=== PATIENT | female | born 1985 | race Caucasian/White ===

== ENCOUNTER 2017-03-22 21:40 | Outpatient (CLI) | payer BC ==
[2017-03-22 22:32] LABS: Appearance,Urine Clear (Clear); Bilirubin,Urine Negative (Negative); Glucose,Urine (UA) Negative (Negative); Ketones,Urine Negative (Negative); Leukocyte Esterase,Urine Negative (Negative); Nitrite,Urine Negative (Negative); PH, Urine 6.5 (5.0-8.0); Protein,Urine Negative (Negative); Specific Gravity,Urine 1.002 (1.001-1.035); UA Billing (MACRO vs. MICRO) CHEM; Urobilinogen,Urine <2.0 mg/dL (<2.0)
[2017-03-22 22:36] VITALS: BP 135/60; PULSE 77; RESP 16; TEMP 97.1
--- NOTE | 2017-04-24 13:58 | P.MSEPDOC ---
Presenting Problems - Arrival Data Date of Arrival on Unit: 03/22/17 Time of Arrival on Unit: 21:45 Mode of Transport: Wheelchair - Complaint OB-Reason for Admission/Chief Complaint: Pain, Other Comment: Pt reports to triage with c/o painful urination. Medical History - Information : 2 Para: 1 Term: 1 : 0 Abortions: Spontaneous or Elective: 0 Number of Living Children: 1 - Gestational Age Gestational Age by BRENDEN (wks/days): 27 Weeks and 0 Days Review of Systems - Review of Systems Constitutional: No problems Breast: No problems ENT: No problems Cardiovascular: No problems Respiratory: No problems Gastrointestinal: No problems Genitourinary: No problems Musculoskeletal: No problems Neurological: No problems Skin: No problems Vital Signs - Temperature Temperature: 97.1 F Temperature Source: Temporal Artery Scan - Pulse Right Pulse Rate: 77 Pulse Assessment Method: Pulse Oximetry - Respirations Respiratory Rate: 16 Oxygen Delivery Method: Room Air O2 Sat by Pulse Oximetry: 99 - Blood Pressure Right Arm Blood Pressure: 135/60 Blood Pressure Mean: 85 Blood Pressure Source: Automatic Cuff Medical Screen Scoring (Pre) - Cervical Exam Dilation: Exam Deferred Effacement: Exam Deferred Membranes: Intact - Uterine Contractions Frequency: N/A Duration: N/A Intensity: N/A - Maternal Vital Signs Maternal Temperature: N/A Maternal Blood Pressure: N/A Signs of Preeclampsia: N/A Maternal Respirations: N/A - Maternal Trauma Maternal Trauma: N/A - Assessment Baseline FHR: 135 Heart Rate - NICHD Category: Category I (Normal) = 0 NST: Reactive Position: N/A Station: N/A - Total Score Total Score (Pre): 0 - Level of Risk Level of Risk: N/A Physician Notification (Pre) - Physician Notified Physician Notified Date: 03/22/17 Physician Notified Time: 22:25 Physician/Practitioner Notifed:: Dr. Payne Spoke With: Dr. Payne New Order Received: Yes - Notification Comment Comment: Orders for UA. Script written and to be given if UA results are positive. If results are negative pt cleared for discharge home and to keep appointment in office. Disposition - Disposition OB Disposition: Discharge to home Discharge Date: 03/22/17 Discharge Time: 22:40 I agree with the RN Medical Screening Exam: Yes Risk & Benefit of care provided described in d/c instruction: Yes Diagnosis: INFECT OF PRT URINARY TRACT IN , SECOND TRIMESTER
== END 2017-03-22 22:40 | disposition home or self-care (01) ==
LOC: FBPOP 21:40 → MERGE 21:40 → FBPOP 22:40
PROVIDERS: ATTEND Obstetrics & Gynecology Obstetrics
DX: O23.32 Infections of other parts of urinary tract in pregnancy, second trimester (principal); Z3A.27 27 weeks gestation of pregnancy
CPT/HCPCS: 81003; 99213

== ENCOUNTER 2017-06-07 19:26 | Emergency (ER) | payer BC ==
[2017-06-07] MEDS ORDERED: SODIUM CHLORIDE 0.9% 1,000 ML IV STA ×2 (20:18)
[2017-06-07] MEDS ORDERED: ONDANSETRON 4 MG/2 ML VIAL IVP STA (20:18)
[2017-06-07 20:47] LABS: Basophils % (A) 0 %; Eosinophils % (A) 0 %; HCT 42.4 % (34.0-46.0); HGB 14.3 gm/dL (11.4-16.0); Lymphocytes # (A) 0.3 k/uL (1.0-4.8); Lymphocytes % (A) 3 %; MCH 32.1 pg (25.0-35.0); MCHC 33.9 g/dL (31.0-37.0); MCV 94.8 fL (80.0-100.0); Mean Platelet Volume 9.4; Monocytes # (A) 0.3 k/uL (0-1.0); Monocytes % (A) 3 %; Neutrophils % (A) 93 %; Platelet Count 149 k/uL (150-450); RBC 4.47 m/uL (3.80-5.40); RDW 14.1 % (11.5-15.5); WBC 9.8 k/uL (3.8-10.6)
[2017-06-07 20:59] LABS: ALT 27 U/L (9-52); AST 30 U/L (14-36); Albumin 3.5 g/dL (3.5-5.0); Alkaline Phosphatase 153 U/L (38-126); Anion Gap 12 mmol/L; Blood Urea Nitrogen 11 mg/dL (7-17); Carbon Dioxide 18 mmol/L (22-30); Chloride 107 mmol/L (98-107); Glucose 81 mg/dL (74-99); Potassium 3.8 mmol/L (3.5-5.1); Sodium 137 mmol/L (137-145); Total Bilirubin 0.6 mg/dL (0.2-1.3); Total Protein 6.2 g/dL (6.3-8.2)
[2017-06-07] MEDS ORDERED: METOCLOPRAMIDE 5 MG/ML 2 ML VIAL IVP STA (21:25)
[2017-06-07] MEDS ORDERED: SODIUM CHLORIDE 0.9% 1,000 ML IV ONE (21:26)
--- NOTE | 2017-06-07 22:00 | ED ---
General Adult HPI - General Chief complaint: Nausea/Vomiting/Diarrhea Stated complaint: Needs Fluids Time Seen by Provider: 06/07/17 20:13 Source: patient, family, RN notes reviewed Mode of arrival: ambulatory Limitations: no limitations - History of Present Illness Initial comments: chief complaint and history of present illness this is a 31-year-old female who is 38 weeks . She is here with her . The patient family has had nausea vomiting and diarrhea. Her other child has it. Patient reports she started vomiting this morning at approximately 9 AM. - Related Data Home Medications Medication Instructions Recorded Confirmed 114/Iron A-G/Folate 1 1 tab PO HS 03/27/15 06/07/17 [Prenate Elite Tablet] Previous Rx's Medication Instructions Recorded Metoclopramide HCl [Reglan] 5 mg PO Q8HR PRN #10 tablet 06/07/17 Allergies Allergy/AdvReac Type Severity Reaction Status Date / Time No Known Allergies Allergy Verified 06/07/17 20:04 Review of Systems ROS Statement: Those systems with pertinent positive or pertinent negative responses have been documented in the HPI. Review of systems; patient denies any headache or visual acuity changes no chest pain or shortness of breath she has nausea vomiting and diarrhea. Minimal discomfort. No rashes. No complaint of any neuro deficits. No dizziness. All systems are reviewed. Past medical problems none. Surgeries none. Family history no cancers. Patient denies any ALLERGIES. Nonsmoker. Does not drink alcohol while . ROS Other: All systems not noted in ROS Statement are negative. Past Medical History Past Medical History: No Reported History History of Any Multi-Drug Resistant Organisms: None Reported Past Surgical History: Appendectomy Past Anesthesia/Blood Transfusion Reactions: No Reported Reaction Past Psychological History: No Psychological Hx Reported Smoking Status: Never smoker Past Alcohol Use History: None Reported Past Drug Use History: None Reported - Past Family History Father Family Medical History: No Reported History General Exam - General Exam Comments Initial Comments: General: The patient is awake and alert, in because of nausea vomiting diarrhea since 9 AM. Vital signs shows temperature 99.2 pulse 102 respiratory rate 18 pulse ox 90% room air blood pressure 127/73 Eye: Pupils are equal, round and reactive to light, extra-ocular movements are intact ; there is normal conjunctiva bilaterally. No signs of icterus. Ears, nose, mouth and throat: There are moist mucous membranes and no oral lesions. Neck: The neck is supple, there is no tenderness Cardiovascular: There is a regular rate and rhythm. No murmur, rub or gallop is appreciated. Respiratory: Lungs are clear to auscultation, respirations are non-labored, breath sounds are equal. No wheezes, stridor, rales, or rhonchi. Gastrointestinal: Patient's here with nausea vomiting diarrhea. She is 38 weeks . Nurse from labor and delivery came down and did a stress test on the baby and reports it to be normal. Back: No back pain. Musculoskeletal: Normal ROM, no tenderness, There is no pedal edema. There is no calf tenderness or swelling. Sensation intact. Pulses equal bilaterally 2+. Neurological: No neuro deficits or complaints of dizziness. Skin: Skin is warm and dry and no rashes or lesions are noted. Limitations: no limitations Course Vital Signs 06/07/17 19:44 Temperature 99.2 F Pulse Rate 107 H Respiratory 18 Rate Blood Pressure 127/73 O2 Sat by Pulse 98 Oximetry Medical Decision Making - Medical Decision Making Decision making; the patient's here because she is 38 weeks has nausea vomiting diarrhea. There is a virus going through the house including her young child. Labs show white count of 9.8 hemoglobin 14 hematocrit of 42, potassium is 3.8 BUN 11 creatinine 0.7 GFR greater than 60. Glucose 81. She will receive IV hydration and Zofran. If necessary a second dose of Reglan will be used if she continues to be nauseated. She felt better after the second liter and IV Reglan. No cramping. Patient wants to go home. Advised to follow-up with her TRADE SHOW SPECIALIST. She'll be given a prescription for Reglan to be taken as directed as needed. - Lab Data Result diagrams: 06/07/17 20:20 06/07/17 20:20 Lab Results 06/07/17 06/07/17 Range/Units 20:20 20:20 WBC 9.8 (3.8-10.6) k/uL RBC 4.47 (3.80-5.40) m/uL Hgb 14.3 (11.4-16.0) gm/dL Hct 42.4 (34.0-46.0) % MCV 94.8 (80.0-100.0) fL MCH 32.1 (25.0-35.0) pg MCHC 33.9 (31.0-37.0) g/dL RDW 14.1 (11.5-15.5) % Plt Count 149 L (150-450) k/uL Neutrophils % 93 % Lymphocytes % 3 % Monocytes % 3 % Eosinophils % 0 % Basophils % 0 % Neutrophils # 9.0 H (1.3-7.7) k/uL Lymphocytes # 0.3 L (1.0-4.8) k/uL Monocytes # 0.3 (0-1.0) k/uL Eosinophils # 0.0 (0-0.7) k/uL Basophils # 0.0 (0-0.2) k/uL Sodium 137 (137-145) mmol/L Potassium 3.8 (3.5-5.1) mmol/L Chloride 107 (98-107) mmol/L Carbon Dioxide 18 L (22-30) mmol/L Anion Gap 12 mmol/L BUN 11 (7-17) mg/dL Creatinine 0.70 (0.52-1.04) mg/dL Est GFR (MDRD) Af Amer >60 (>60 ml/min/1.73 sqM) Est GFR (MDRD) Non-Af >60 (>60 ml/min/1.73 sqM) Glucose 81 (74-99) mg/dL Calcium 9.0 (8.4-10.2) mg/dL Total Bilirubin 0.6 (0.2-1.3) mg/dL AST 30 (14-36) U/L ALT 27 (9-52) U/L Alkaline Phosphatase 153 H (38-126) U/L Total Protein 6.2 L (6.3-8.2) g/dL Albumin 3.5 (3.5-5.0) g/dL Disposition Clinical Impression: Gastroenteritis Disposition: HOME SELF-CARE Condition: Fair Instructions: Acute Nausea and Vomiting (ED), Acute Diarrhea (ED) Additional Instructions: Cuadra diet, advance probiotics, use of Reglan as needed. Follow-up TR[facility]OW SPECIALIST Prescriptions: Metoclopramide HCl [Reglan] 5 mg PO Q8HR PRN #10 tablet PRN Reason: Nausea Referrals: None,Stated [Primary Care Provider] - 1-2 days Time of Disposition: 23:10
[2017-06-07 23:30] VITALS: BP 125/97; PULSE 92; RESP 100; TEMP 97.3
== END 2017-06-07 23:29 | disposition home or self-care (01) ==
LOC: MERGE 19:26 → EC 19:26
DX: K52.9 Noninfective gastroenteritis and colitis, unspecified (principal); O99.89 Other specified diseases and conditions complicating pregnancy, childbirth and the puerperium; Z3A.38 38 weeks gestation of pregnancy
CPT/HCPCS: 99284; 96374; 96375; 36415; 80053; 85025; J2765; J2405

== ENCOUNTER 2017-06-13 04:47 | Inpatient (IN) | payer BC ==
[2017-06-13] MEDS ORDERED: LIDOCAINE 1% (PF) 10 MG/ML (30 ML SDV) SQ PRN (05:38)
[2017-06-13] MEDS ORDERED: OXYTOCIN 10 UNIT/ML 1 ML VIAL IM PRN (05:38)
[2017-06-13] MEDS ORDERED: METHYLERGONOVINE 0.2 MG/ML 1 ML AMP IM PRN (05:38)
[2017-06-13] MEDS ORDERED: CARBOPROST TROMETHAMINE 250 MCG/ML 1 ML AMP IM PRN (05:38)
[2017-06-13] MEDS ORDERED: PENICILLIN G POTASSIUM 5,000,000 UNIT in DEXTROSE 5% IN WATER 100 ML IVPB STA ×2 (05:38)
[2017-06-13] MEDS ORDERED: TERBUTALINE 1 MG/ML VIAL SQ PRN (05:38)
[2017-06-13] MEDS ORDERED: BUTORPHANOL 1 MG/ML 1 ML VIAL IV PRN (05:39)
[2017-06-13] MEDS ORDERED: OXYTOCIN 20 UNITS/1000 ML NS 1,000 ML IV SCH ×2 (05:45→12:45)
[2017-06-13] MEDS: LACTATED RINGERS 1,000 ML IV SCH ×2 (06:14→07:56)
[2017-06-13 06:24] LABS: Basophils % (A) 0 %; Eosinophils % (A) 1 %; HCT 35.3 % (34.0-46.0); HGB 12.1 gm/dL (11.4-16.0); Lymphocytes # (A) 1.1 k/uL (1.0-4.8); Lymphocytes % (A) 16 %; MCH 32.3 pg (25.0-35.0); MCHC 34.2 g/dL (31.0-37.0); MCV 94.6 fL (80.0-100.0); Mean Platelet Volume 9.3; Monocytes # (A) 0.6 k/uL (0-1.0); Monocytes % (A) 9 %; Neutrophils # (A) 4.6 k/uL (1.3-7.7); Neutrophils % (A) 71 %; Platelet Count 151 k/uL (150-450); RBC 3.73 m/uL (3.80-5.40); RDW 13.3 % (11.5-15.5); WBC 6.5 k/uL (3.8-10.6)
[2017-06-13 06:42] VITALS: BMI 32.8
[2017-06-13] MEDS ORDERED: BUPIVACAINE (PF) 0.25% 30 ML VIAL ONE (07:59)
[2017-06-13] MEDS ORDERED: fentaNYL (PF) 50 MCG/ML 5 ML AMP ONE (07:59)
[2017-06-13] MEDS ORDERED: SODIUM CHLORIDE 0.9% 100 ML BAG ONE (07:59)
--- NOTE | 2017-06-13 08:51 | P.HPOB ---
History of Present Illness H&P Date: 06/13/17 Chief Complaint: 38-6/7 weeks, spontaneous rupture of membranes, early labor The patient is a 31-year-old 2 para 1001 admitted at 38-6/7 weeks as established by last menstrual period and confirmed by seven-week ultrasound. She is admitted with documented spontaneous rupture of membranes having begun leaking approximately 24 hours ago. She presents to labor and delivery with contractions and discomfort. She is admitted for active management of labor. Her has been entirely uncomplicated though she does carry a history of previous section in her initial for breech presentation. She has requested vaginal trial of labor should the be vertex which is recurrent finding. Group B strep status is negative. Obstetrical history: 2 para 1001 with 1 term delivery for breech presentation. Current statistics are listed in history of present illness. EDC of 06/21/2017 was established by last menstrual period and confirmed by seven-week ultrasound. Laboratory workup done traits of blood type of A+ with a antibody screen which is negative. Rubella status is immune. All other laboratory workup was within normal limits. One hour Glucola was normal and group B strep status is negative. Gynecologic history: Unremarkable with no history of any infections to include STDs. Review of Systems Review of systems is confined to history of present illness. Past Medical History Past Medical History: No Reported History History of Any Multi-Drug Resistant Organisms: None Reported Past Surgical History: Appendectomy, Section Past Anesthesia/Blood Transfusion Reactions: No Reported Reaction Past Psychological History: No Psychological Hx Reported Smoking Status: Never smoker Past Alcohol Use History: None Reported Past Drug Use History: None Reported - Past Family History Father Family Medical History: No Reported History Medications and Allergies Home Medications Medication Instructions Recorded Confirmed Type 114/Iron A-G/Folate 1 1 tab PO HS 03/27/15 06/13/17 History [Prenate Elite Tablet] Allergies Allergy/AdvReac Type Severity Reaction Status Date / Time No Known Allergies Allergy Verified 06/13/17 04:58 Exam - Vital Signs Vital signs: Vital Signs Temp Pulse Resp BP 06/13/17 06:30 98.2 F 76 20 06/13/17 05:30 97.7 F 96 16 126/83 Intake and Output 06/12/17 06/13/17 06/13/17 22:59 06:59 14:59 Other: # Voids 2 Weight 89.358 kg In general, this is a well-developed, well-nourished white female in no acute distress. Her heart has a regular rhythm and rate without murmur. Her lungs are clear to auscultation bilaterally in all garcia. Her abdomen is gravid, nondistended, has normal active bowel sounds, is soft, nontender, and without any palpable masses aside from uterine fundus. Her extremities are without any cyanosis, clubbing, or significant edema and are nontender to palpation bilaterally. Digital cervical examination demonstrates her cervix to be 2 cm dilated, 90% effaced, the vertex in presentation at -2-3 station. Rupture of membranes of the forecoming membranes is carried out demonstrating clear fluid. Results Result Diagrams: 06/13/17 06:05 Abnormal Lab Results - Last 24 Hours (Table) 06/13/17 Range/Units 06:05 RBC 3.73 L (3.80-5.40) m/uL Assessment and Plan (1) Prolonged rupture of membranes Current Visit: Yes Status: Acute Code(s): O42.90 - MARIA TERESA ROM, 7TH0 BETW RUPT & ONST LABR, UNSP WEEKS OF GEST SNOMED Code(s): 358690564 (2) Active labor at term Current Visit: Yes Status: Acute Code(s): HXM2701 - SNOMED Code(s): 92715646 (3) S/P section Current Visit: Yes Status: Acute Code(s): Z98.89 - OTHER SPECIFIED POSTPROCEDURAL STATES * DO NOT USE * SNOMED Code(s): 357966660 Plan: The patient is admitted for active management of labor. Given the potential for prolonged rupture of membranes, antibody prophylaxis has been started. She has consented to a vaginal trial of labor after section understanding the risks and complications including the possibility of uterine rupture. Given her remoteness from delivery, Pitocin augmentation has been started as well. She has had an epidural catheter placed for analgesia. We will continue to use close maternal and surveillance and expectant management will be practiced. I did discuss with her that, should she not follow a relatively steady labor course, we may proceed to repeat section given the length of her course at this time already.
[2017-06-13] MEDS: PENICILLIN G POTASSIUM 2,500,000 UNIT in DEXTROSE 5% IN WATER 100 ML IVPB SCH ×4 (10:22→13:42)
[2017-06-13] MEDS ORDERED: Acetaminophen-Codeine 300-30mg TAB PO PRN ×2 (12:39)
[2017-06-13] MEDS ORDERED: diphenhydrAMINE 50 MG/ML 1 ML VIAL IVP PRN ×2 (12:39)
[2017-06-13] MEDS ORDERED: SIMETHICONE 80 MG CHEWABLE PO PRN (12:39)
[2017-06-13] MEDS ORDERED: WITCH HAZEL 1 EACH MED..PAD TOPICAL PRN (12:39)
[2017-06-13] MEDS ORDERED: BENZOCAINE/MENTHOL SPRAY 1 GM/SPRAY AEROSOL TOPICAL PRN (12:39)
[2017-06-13] MEDS ORDERED: HYDROCORTISONE 2.5% RECTAL CREAM 30 GM TUBE RECTAL PRN (12:39)
[2017-06-13] MEDS ORDERED: LANOLIN CREAM 5 GM TUBE TOPICAL PRN (12:39)
[2017-06-13] MEDS ORDERED: diphenhydrAMINE 25 MG CAP PO PRN (12:39)
[2017-06-13] MEDS ORDERED: ZOLPIDEM 5 MG TAB PO PRN (12:39)
[2017-06-13] MEDS ORDERED: diphenhydrAMINE 50 MG CAP PO PRN (12:39)
--- NOTE | 2017-06-13 12:43 | P.PROBDLV ---
Vaginal Delivery Note - . Vaginal Delivery Note: The patient is a 31-year-old 2 para 1001 admitted at 38-6/7 weeks by good dating parameters. She is admitted with documented spontaneous or rupture of membranes of clear fluid, apparently now prolonged at the time of admission having started leaking yesterday morning. She is also in early labor with all signs reassuring. Her has been uncomplicated though she has had a previous section for breech with her first and has requested vaginal trial of labor. On labor and delivery, she had antibody prophylaxis started for prolonged rupture of membranes. She then had Pitocin augmentation started and, ultimately, underwent rupture of remaining amniotic membranes in front of the head. She had an epidural catheter placed for analgesia. She made fairly rapid progress through the active phase of labor to complete with some ongoing decelerations along the way which ultimately resolved. She then pushed over the course of approximately 40 minutes to a normal spontaneous vaginal delivery, successful vaginal after section, of a viable 7 lbs. 6 oz. baby boy with Apgars of 9 at 1 minute and 9 at 5 minutes delivered in the right occiput anterior position. The placenta was delivered spontaneously, intact, and grossly normal with a grossly normal three-vessel cord inserted approximate 2-3 cm from the margin of the placenta. There was a reasonably large second-degree midline perineal laceration which was repaired in standard fashion using 3-0 chromic catgut without difficulty. Estimated blood loss for the entire case was approximately 350 mL. There were no complications. All sponge, instrument, and needle counts were correct. Both mother and infant are resting comfortably in recovery.
[2017-06-13] MEDS ORDERED: BUPIVACAINE (PF) 0.25% 25 ML, fentaNYL (PF) 200 MCG in SODIUM CHLORIDE 0.9% 71 ML EPIDURAL ONE (13:59)
[2017-06-13] MEDS: IBUPROFEN 600 MG TAB PO PRN ×2 (14:18→20:14)
[2017-06-13] MEDS: SENNOSIDES-DOCUSATE SODIUM 1 EACH TAB PO SCH (20:14)
[2017-06-14] MEDS: IBUPROFEN 600 MG TAB PO PRN ×3 (04:15→19:29)
[2017-06-14] MEDS: SENNOSIDES-DOCUSATE SODIUM 1 EACH TAB PO SCH ×2 (07:43→19:29)
--- NOTE | 2017-06-14 11:28 | P.PNOBGVD ---
Subjective - Subjective Patient reports: Reports appetite normal, Reports voiding normally, Reports pain well controlled, Reports ambulating normally : doing well, nursing well Objective - Latest Vital Signs Latest vital signs: Vital Signs Temp Pulse Resp BP Pulse Ox 06/14/17 08:00 97.6 F 81 17 121/68 97 06/14/17 00:00 98.1 F 84 16 119/62 06/13/17 20:00 97.4 F L 70 16 114/62 06/13/17 14:26 97.9 F 86 17 118/75 97 06/13/17 13:56 78 16 124/74 06/13/17 13:26 85 16 126/67 06/13/17 13:11 76 17 118/66 06/13/17 12:56 76 17 126/69 06/13/17 12:41 81 18 122/67 06/13/17 12:26 98.9 F 86 17 140/71 Intake and Output 06/13/17 06/14/17 06/14/17 22:59 06:59 14:59 Other: # Voids 2 0 2 - Exam Extremities: Present: normal Abdomen: Present: normal appearance, soft Uterus: Present: normal, firm (The uterine fundus as tonic and nontender around the umbilicus.) Assessment and Plan (1) Prolonged rupture of membranes Current Visit: Yes Status: Acute Code(s): O42.90 - MARIA TERESA ROM, 7TH0 BETW RUPT & ONST LABR, UNSP WEEKS OF GEST SNOMED Code(s): 514440036 (2) Active labor at term Current Visit: Yes Status: Acute Code(s): ERO2015 - SNOMED Code(s): 20737575 (3) S/P section Current Visit: Yes Status: Acute Code(s): Z98.89 - OTHER SPECIFIED POSTPROCEDURAL STATES * DO NOT USE * SNOMED Code(s): 864008289 (4) Vaginal after section Current Visit: Yes Status: Acute Code(s): O34.219 - MATERNAL CARE FOR UNSP TYPE SCAR FROM PREVIOUS DEL SNOMED Code(s): 660822164 Plan: Continue routine care. The patient is to remain until day #2 as the infant is has been required to have 48 hours worth of observation secondary to prolonged rupture of membranes.
[2017-06-14] MEDS: ACETAMINOPHEN TAB 325 MG TAB PO PRN (15:21)
[2017-06-14 17:02] VITALS: PULSE 69
[2017-06-15] MEDS: IBUPROFEN 600 MG TAB PO PRN (04:08)
[2017-06-15] MEDS: SENNOSIDES-DOCUSATE SODIUM 1 EACH TAB PO SCH (08:17)
[2017-06-15] MEDS: ACETAMINOPHEN TAB 325 MG TAB PO PRN (08:17)
[2017-06-15 08:56] VITALS: BP 116/70; RESP 18; TEMP 98.3
--- NOTE | 2017-06-15 09:17 | P.DS ---
Providers Date of admission: 06/13/17 05:21 Expected date of discharge: 06/15/17 Attending physician: Jac Chavez Primary care physician: Stated None Hospital Course: This is a 31-year-old white female 2 para 1001 EDC 06/21/2017 at 38-6/7 weeks' gestation. Patient presented with prolonged rupture of membranes. Her history is significant for previous section, hoping for . Blood type A+, rubella status immune, group B strep cultures negative. Please see dictated history and physical for details. Penicillin G prophylaxis was given along with oxytocin. Patient did go on to deliver vaginally a liveborn male with scores of 9 and 9 at one and 5 minutes respectively. weighed 3345 g or 7 lbs. 6 oz. There was a small second-degree perineal laceration easily repaired. Please see dictated delivery note for details. This morning the patient and her baby are both doing well. Circumcision has been performed. The patient is voiding, ambulate in, passing flatus without difficulty. Vital signs are stable and she has remained afebrile. Breast- feeding is going well. I have given her prescription for breast pump to be used as needed. She will continue taking her vitamin daily. I've asked her to call with any fevers shakes or chills, foul smelling or copious lochia, with the passage of large blood clots, with any pain not alleviated by [id number] products, or indeed with any concerns. Baby will follow up with outboard technician as recommended. Patient Condition at Discharge: Good Plan - Discharge Summary New Discharge Prescriptions: No Action 114/Iron A-G/Folate 1 [Prenate Elite Tablet] 1 tab PO HS Discharge Medication List 114/Iron A-G/Folate 1 [Prenate Elite Tablet] 1 tab PO HS 03/27/15 [ History] Follow up Appointment(s)/Referral(s): Jac Chavez MD [STAFF PHYSICIAN] - 6 Weeks Discharge Disposition: HOME SELF-CARE
== END 2017-06-15 13:17 | disposition home or self-care (01) | DRG 775 ==
LOC: FBPOP 04:47 → 4FBP 05:21
PROVIDERS: ADMIT Obstetrics & Gynecology; ATTEND Obstetrics & Gynecology
PROC: 10E0XZZ Delivery of Products of Conception, External Approach (ICD-10-PCS; principal; 2017-06-13)
PROC: 0KQM0ZZ Repair Perineum Muscle, Open Approach (ICD-10-PCS; 2017-06-13)
PROC: 00HU33Z Insertion of Infusion Device into Spinal Canal, Percutaneous Approach (ICD-10-PCS; 2017-06-13)
PROC: 3E0R3BZ Introduction of Anesthetic Agent into Spinal Canal, Percutaneous Approach (ICD-10-PCS; 2017-06-13)
DX: O42.12 Full-term premature rupture of membranes, onset of labor more than 24 hours following rupture (principal); N85.8 Other specified noninflammatory disorders of uterus; Z37.0 Single live birth; Z3A.38 38 weeks gestation of pregnancy; O34.211 Maternal care for low transverse scar from previous cesarean delivery; O70.1 Second degree perineal laceration during delivery; Z79.899 Other long term (current) drug therapy
CPT/HCPCS: 59025; 85025; 86850; 86900; 86901; 88307; 99213

== ENCOUNTER 2020-01-15 13:59 | Inpatient (IN) | payer BC ==
[2020-01-15] MEDS: LACTATED RINGERS 1,000 ML IV SCH ×2 (15:00→15:26)
[2020-01-15] MEDS ORDERED: OXYTOCIN 10 UNIT/ML 1 ML VIAL IM PRN (15:02)
[2020-01-15] MEDS ORDERED: LIDOCAINE 0.5% (PF) 5 MG/ML (50 ML SDV) SQ PRN (15:02)
[2020-01-15] MEDS ORDERED: CARBOPROST TROMETHAMINE 250 MCG/ML 1 ML AMP IM PRN (15:02)
[2020-01-15] MEDS ORDERED: METHYLERGONOVINE 0.2 MG/ML 1 ML AMP IM PRN (15:02)
[2020-01-15] MEDS ORDERED: TERBUTALINE 1 MG/ML VIAL SQ PRN (15:02)
[2020-01-15 15:13] LABS: Basophils % (A) 0 %; Eosinophils # (A) 0.1 k/uL (0-0.7); Eosinophils % (A) 1 %; HCT 38.3 % (34.0-46.0); HGB 12.4 gm/dL (11.4-16.0); Lymphocytes # (A) 1.1 k/uL (1.0-4.8); Lymphocytes % (A) 15 %; MCH 31.2 pg (25.0-35.0); MCHC 32.4 g/dL (31.0-37.0); MCV 96.3 fL (80.0-100.0); Mean Platelet Volume 9.3; Monocytes # (A) 0.6 k/uL (0-1.0); Monocytes % (A) 8 %; Neutrophils # (A) 5.3 k/uL (1.3-7.7); Neutrophils % (A) 74 %; Platelet Count 154 k/uL (150-450); RBC 3.98 m/uL (3.80-5.40); RDW 14.1 % (11.5-15.5); WBC 7.3 k/uL (3.8-10.6)
[2020-01-15] MEDS ORDERED: OXYTOCIN 30 UNITS/500 ML NS 30 UNIT in SALINE 1 500ML.BAG IV SCH (15:15)
[2020-01-15] MEDS ORDERED: LACTATED RINGERS 1,000 ML IV SCH (15:15)
--- NOTE | 2020-01-15 18:07 | P.HPOB ---
History of Present Illness H&P Date: 01/15/20 Chief Complaint: 41-0/7 weeks, early active labor The patient is a 34-year-old 3 para 2001 admitted at 41-0/7 weeks as established by last menstrual period and confirmed by seven-week ultrasound. She is admitted in early active labor with all signs reassuring. She has had reassuring testing since passing her due date. She does carry a history of a previous section with subsequent successful vaginal after section and requested vaginal trial of labor for this . On labor and delivery, she underwent artificial rupture of membranes for clear fluid. Group B strep status is negative. Obstetrical history: 3 para 2001 with a history of section for breech presentation followed by successful . Current statistics are listed in history of present illness. EDC of 01/08/2020 was established by last menstrual period and confirmed by seven-week ultrasound. Laboratory workup demonstrates a blood type of A+ with a negative antibody screen. Rubella status is immune. The remainder of the laboratory workup was within normal limits. One hour Glucola was normal and group B strep status is negative. Gynecologic history: Unremarkable with no history of any infections to include STDs. Review of Systems Review of systems is confined to history of present illness. Past Medical History Past Medical History: No Reported History History of Any Multi-Drug Resistant Organisms: None Reported Past Surgical History: Appendectomy, Section Past Anesthesia/Blood Transfusion Reactions: No Reported Reaction Past Psychological History: No Psychological Hx Reported Smoking Status: Never smoker Past Alcohol Use History: None Reported Past Drug Use History: None Reported - Past Family History Father Family Medical History: No Reported History Medications and Allergies Home Medications Medication Instructions Recorded Confirmed Type 114/Iron A-G/Folate 1 1 tab PO HS 03/27/15 01/15/20 History [Prenate Elite Tablet] Allergies Allergy/AdvReac Type Severity Reaction Status Date / Time No Known Allergies Allergy Verified 01/15/20 14:05 Exam Vital Signs Temp Pulse Resp BP 01/15/20 15:35 98.1 F 83 18 126/74 01/15/20 14:06 98.1 F 83 18 126/74 Intake and Output 01/15/20 01/15/20 01/15/20 06:59 14:59 22:59 Other: Weight 92.986 kg 92.986 kg In general, this is a well-developed, well-nourished white female in no acute distress. Her heart has a regular rhythm and rate without murmur. Her lungs are clear to auscultation bilaterally in all garcia. Her abdomen is gravid, nondistended, has normal active bowel sounds, is soft, nontender, and without any palpable masses aside from the uterine fundus. Her extremities are without any cyanosis, clubbing, or edema and are nontender to palpation bilaterally. Digital cervical examination demonstrated cervix to be approximate 6 cm dilated, 70% effaced, the vertex in presentation at -1-2 station. Artificial rupture of membranes is carried out demonstrating clear fluid. Results Result Diagrams: 01/15/20 15:00 Assessment and Plan (1) Post-dates Current Visit: Yes Status: Acute Code(s): O48.0 - POST-TERM SNOMED Code(s): 68320170 (2) Previous section Current Visit: Yes Status: Acute Code(s): Z98.891 - HISTORY OF UTERINE SCAR FROM PREVIOUS SURGERY SNOMED Code(s): 632320996 (3) Active labor at term Current Visit: Yes Status: Acute Code(s): DOX9577 - SNOMED Code(s): 358 98354 Plan: The patient is admitted for vaginal trial of labor with a history of previous section and has been counseled regarding the risks and complications. She has had Pitocin started and has undergone artificial rupture of membranes. An epidural catheter is in place for analgesia. She will continue to have close maternal and surveillance and expectant management will be practiced.
[2020-01-15] MEDS: OXYTOCIN 20 UNITS/1000 ML NS 1,000 ML IV SCH ×2 (18:25→18:30)
[2020-01-15] MEDS ORDERED: diphenhydrAMINE 50 MG CAP PO PRN (18:44)
[2020-01-15] MEDS ORDERED: ACETAMINOPHEN TAB 325 MG TAB PO PRN (18:44)
[2020-01-15] MEDS ORDERED: diphenhydrAMINE 25 MG CAP PO PRN (18:44)
[2020-01-15] MEDS ORDERED: BENZOCAINE/MENTHOL SPRAY 1 GM/SPRAY AEROSOL TOPICAL PRN (18:44)
[2020-01-15] MEDS ORDERED: LANOLIN CREAM 5 GM TUBE TOPICAL PRN (18:44)
[2020-01-15] MEDS ORDERED: HYDROCORTISONE 2.5% RECTAL CREAM 30 GM TUBE RECTAL PRN (18:44)
[2020-01-15] MEDS ORDERED: HYDROcodone/APAP 7.5-325MG 1 EACH TAB PO PRN (18:44)
[2020-01-15] MEDS ORDERED: ZOLPIDEM 5 MG TAB PO PRN (18:44)
[2020-01-15] MEDS ORDERED: SIMETHICONE 80 MG CHEWABLE PO PRN (18:44)
[2020-01-15] MEDS ORDERED: HYDROcodone/APAP 5-325MG 1 EACH TAB PO PRN (18:44)
[2020-01-15] MEDS ORDERED: diphenhydrAMINE 50 MG/ML 1 ML VIAL IVP PRN ×2 (18:44)
--- NOTE | 2020-01-15 18:47 | P.PROBDLV ---
Vaginal Delivery Note - . Vaginal Delivery Note: The patient is a 34-year-old 3 para 2001 admitted at 41-0/7 weeks by good dating parameters. She is admitted in early active labor with all signs reassuring. Her has been entirely uncomplicated though she carries a history of a previous section for breech in her first followed by a successful vaginal after section and her next . She has requested trial labor with this . On labor and delivery, she had an epidural catheter placed for analgesia and Pitocin augmentation started. She then underwent artificial rupture of membranes and progressed very rapidly for approximate 6 cm to complete where after she pushed over the course of approximately 3 contractions to a normal spontaneous vaginal delivery of a viable 8 lbs. 8 oz. baby boy with Apgars of 8 at 1 minute and 9 at 5 minutes delivered in the direct occiput anterior position. The placenta was delivered spontaneously, intact, and grossly normal with a grossly normal, centrally inserted three-vessel cord. There was a small second-degree midline laceration over the site of a previous laceration which was repaired in standard fashion using 3-0 chromic catgut without difficulty. Estimated blood loss for the case was approximately 200 mL. There were no complications. All sponge, instrument, and needle counts were correct. Both mother and infant are resting comfortably in recovery.
--- NOTE | 2020-01-15 19:24 | P.MSEPDOC ---
Presenting Problems - Arrival Data Date of Arrival on Unit: 01/15/20 Time of Arrival on Unit: 13:59 Mode of Transport: Ambulatory - Complaint OB-Reason for Admission/Chief Complaint: Possible Onset of Labor Comment: contractions since yesterday noon, increased in strength and frequency Medical History - Information : 3 Para: 2 Term: 2 : 0 Abortions: Spontaneous or Elective: 0 Number of Living Children: 2 - Gestational Age Gestational Age by BRENDEN (wks/days): 41 Weeks and 0 Days Review of Systems - Review of Systems Constitutional: No problems Breast: No problems ENT: No problems Cardiovascular: No problems Respiratory: No problems Gastrointestinal: No problems Genitourinary: No problems Musculoskeletal: No problems Neurological: No problems Skin: No problems Vital Signs - Temperature Temperature: 98.1 F Temperature Source: Temporal Artery Scan - Pulse Right Apical Pulse Rate: 71 Pulse Assessment Method: Automatic Cuff - Respirations Respiratory Rate: 17 Oxygen Delivery Method: Room Air - Blood Pressure Right Arm Sitting Blood Pressure: 107/53 Blood Pressure Mean: 71 Blood Pressure Source: Automatic Cuff Medical Screen Scoring (Pre) - Cervical Exam Dilation: 4-7 cm = 2 Effacement: More than 50% = 2 Membranes: Intact - Uterine Contractions Frequency: > 5 minutes apart = 1 Duration: > 40 seconds = 2 Intensity: N/A - Maternal Vital Signs Maternal Temperature: N/A Maternal Blood Pressure: N/A Signs of Preeclampsia: N/A Maternal Respirations: N/A - Maternal Trauma Maternal Trauma: N/A - Assessment - Baby A Baseline FHR: 140 Heart Rate - NICHD Category: Category I (Normal) = 0 NST: Reactive Position: N/A Station: N/A - Total Score - Baby A Total Score - Baby A: 7 - Total Score - Baby B Total Score - Baby B: 7 - Total Score - Baby C Total Score - Baby C: 7 - Level of Risk - Baby A Level of Risk - Baby A: Medium (6-9) - Level of Risk - Baby B Level of Risk - Baby B: Medium (6-9) - Level of Risk - Baby C Level of Risk - Baby C: Medium (6-9) Physician Notification (Pre) - Physician Notified Physician Notified Date: 01/15/20 Physician Notified Time: 14:07 New Order Received: Yes - Notification Comment Comment: admit for labor may have epidural, start pitocin if contractions not regular. To [address] Disposition - Disposition OB Disposition: Admit, LDRP Suite I agree with the RN Medical Screening Exam: Yes Risk & Benefit of care provided described in d/c instruction: Yes Diagnosis: ENCOUNTER FOR FULL-TERM UNCOMPLICATED DELIVERY
[2020-01-15] MEDS: SENNOSIDES-DOCUSATE SODIUM 1 EACH TAB PO SCH (21:25)
[2020-01-15] MEDS: IBUPROFEN 600 MG TAB PO PRN (21:26)
[2020-01-16] MEDS: SENNOSIDES-DOCUSATE SODIUM 1 EACH TAB PO SCH (07:16)
[2020-01-16] MEDS: IBUPROFEN 600 MG TAB PO PRN ×2 (07:16→15:42)
--- NOTE | 2020-01-16 11:49 | P.DS ---
Providers Date of admission: 01/15/20 14:18 Expected date of discharge: 01/16/20 Attending physician: Jac Chavez Primary care physician: Jac Chavez - Discharge Diagnosis(es) (1) Post-dates Current Visit: Yes Status: Acute (2) Previous section Current Visit: Yes Status: Acute (3) Active labor at term Current Visit: Yes Status: Acute (4) Normal spontaneous vaginal delivery Current Visit: Yes Status: Acute (5) Vaginal after section Current Visit: Yes Status: Acute Hospital Course: The patient is a 34-year-old 3 para 2 scissors or 2 admitted at 41-0/7 weeks by good dating parameters. She is admitted in early active labor with all signs reassuring. Her has been uncomplicated and group B strep status is negative. She does carry a history of a previous section with one successful following that. She has requested trial of labor. On labor and delivery, she had an epidural catheter placed for analgesia and Pitocin augmentation added. She then underwent artificial rupture of membranes and progressed thereafter very quickly to complete. She pushed to a normal spontaneous vaginal delivery, successful , of a viable 8 lbs. 8 oz. baby boy with Apgars of 8 at 1 minute and 9 at 5 minutes. Her course was unremarkable with vital signs remained stable and her temperature was afebrile throughout. She was deemed stable for discharge on day #1 was discharged home to follow-up in the office in 6 weeks' time routinely. Discharge instructions included calling for any significantly increased bleeding or foul-smelling lochia, significantly increased fever abdominal pain, perineal complaints, breast complaints, or anything else that concerned her. She is additionally instructed to have nothing in the vagina for at least 6 weeks time to include intercourse. She understood her instructions and agrees follow up as noted above. Discharge medications included continued vitamins as she has opted to breast-feed as well as [id number] analgesic pain medications. Maternal blood type is A+ and rubella status is immune. Procedures: #1. Epidural analgesia #2. Pitocin augmentation #3. Artificial rupture of membranes #4. Normal spontaneous vaginal delivery, successful #5. Repair of perineal laceration Patient Condition at Discharge: Good Plan - Discharge Summary New Discharge Prescriptions: No Action 114/Iron A-G/Folate 1 [Prenate Elite Tablet] 1 tab PO HS Discharge Medication List 114/Iron A-G/Folate 1 [Prenate Elite Tablet] 1 tab PO HS 03/27/15 [History] Follow up Appointment(s)/Referral(s): Jac Chavez MD [Primary Care Provider] - 6 Weeks Discharge Disposition: HOME SELF-CARE
[2020-01-16 16:22] VITALS: BP 97/51; PULSE 69; RESP 16; TEMP 98.4
== END 2020-01-16 18:30 | disposition home or self-care (01) | DRG 807 ==
LOC: FBPOP 13:59 → 4FBP 14:18
PROVIDERS: ADMIT Obstetrics & Gynecology; ATTEND Obstetrics & Gynecology
PROC: 10E0XZZ Delivery of Products of Conception, External Approach (ICD-10-PCS; principal; 2020-01-15)
PROC: 0KQM0ZZ Repair Perineum Muscle, Open Approach (ICD-10-PCS; 2020-01-15)
PROC: 10907ZC Drainage of Amniotic Fluid, Therapeutic from Products of Conception, Via Natural or Artificial Opening (ICD-10-PCS; 2020-01-15)
PROC: 3E0R3BZ Introduction of Anesthetic Agent into Spinal Canal, Percutaneous Approach (ICD-10-PCS; 2020-01-15)
DX: O48.0 Post-term pregnancy (principal); Z37.0 Single live birth; O34.219 Maternal care for unspecified type scar from previous cesarean delivery; O70.1 Second degree perineal laceration during delivery; Z3A.41 41 weeks gestation of pregnancy; Z79.899 Other long term (current) drug therapy
CPT/HCPCS: 59025; 85025; 86850; 86900; 86901; 99213

== ENCOUNTER → 2024-09-17 | Outpatient (CLI) | payer BC ==
--- NOTE | 2024-09-17 12:18 | MM ---
Reason for Exam: Screening (asymptomatic). Baseline mammogram. Patient History: Menarche at age 12. First Full-Term at age 29. Late child-bearing (after 30). Patient has history of breast feeding. Last menstrual period: 08/18/2024 Risk Values: Thuy 5 year model risk: 0.7%. NCI Lifetime model risk: 13.7%. Prior Study Comparison: Patient's first Mammogram. Tissue Density: There are scattered areas of fibroglandular density. Findings: Analyzed By CAD. There is no suspicious group of microcalcifications or new suspicious mass in either breast. Overall Assessment: Negative, BI-RAD 1 Management: Screening Mammogram of both breasts in 1 year. . Patient should continue monthly self-breast exams. A clinical breast exam by your physician is recommended on an annual basis. This exam should not preclude additional follow-up of suspicious palpable abnormalities. Note on Thuy scores and lifetime risk: 1. A Thuy score greater than 3% is considered moderate risk. If this is the case, consider specialist referral to assess eligibility for a risk reducing agent. 2. If overall lifetime risk for the development of breast cancer is 20% or higher, the patient may qualify for future screening with alternating mammogram and breast MRI. [facility], , 09/17/2024 12:15 PM. Electronically signed and approved by: Praneeth Armenta M.D. [facility]
== END | disposition home or self-care (01) ==
LOC: RADMAMWWP 11:12
PROVIDERS: ATTEND Obstetrics & Gynecology
DX: Z12.31 Encounter for screening mammogram for malignant neoplasm of breast (principal); R92.323 Mammographic fibroglandular density, bilateral breasts
CPT/HCPCS: 77063; 77067